=== PATIENT | male | born 1955 | race Caucasian/White ===

== ENCOUNTER → 2017-01-14 | Outpatient (CLI) | payer OTHER ==
[~2017-01-14] MED LIST: ACTIGALL300 MG PO; ANTIVIRAL MED; ASPIRIN EC81 M1 PO; ASPIRIN81 M1 PO; AUGMENTIN875 M1 DOB; AUGMENTIN875 M1 PO; BACTRIM DS TABL1 TA1 PO; CARDIZEM CD240 MG PO; CLEOCIN PO; CYCLOSPORINE100 M1 PO; DILTIAZEM 24HR180 M2; DILTIAZEM PO; FLEXERIL10 MG PO; FLONASE 0.05% N16 G1; FLUID PILL; GENGRAF25 MG PO; HYCODAN60 ML 5MG/ PO; HYDROCODON-ACE1 EAC7 PO; HYZAAR 100-25 T1 TA1 PO; ILOTYCIN1 G1 OP; KEFLEX500 MG PO; LABETALOL HCL200 MG PO; LIDOCARE1 EACH TOP; LIORESAL10 MG PO; MATZIM LA240 MG PO; METOPROLOL PO; MULTI-DAY1 TAB PO; MULTIVITAMIN1 UDCAP PO; MYFORTIC PO; MYFORTIC180 MG PO; OLYSIO PO; PERCOCET 5/321 UDTAB PO; PERCOCET7.5 PO; PREVACID PO; PREVACID15 M1; PRILOSEC20 MG PO; TOPROL XL50 MG PO; TORSEMIDE PO; TUSSIONEX PENN473 ML PO; ULORIC PO; ULORIC40 MG PO; URSODIOL PO; ZITHROMAX PO; ZYLOPRIM100 MG DOB; ZYLOPRIM100 MG PO; ZYRTEC10 M2 PO
[2017-01-14 09:14] LABS: ALBUMIN SERUM 4.1 g/dL (3.5-5.0); BASOPHIL# 0.1 X10e3 (0-0.3); BASOPHIL% 1.1 % (0-2.5); BILIRUBIN,TOTAL 0.8 mg/dL (0.2-2.0); BUN/CREATININE RATIO 15.83; CALCIUM SERUM 8.7 mg/dL (8.4-10.2); CREATININE SERUM 1.2 mg/dL (0.6-1.4); EOSINOPHIL# 0.1 X10e3 (0-0.7); EOSINOPHIL% 1.7 % (0.0-7.0); GLOM FILT RATE Estimated 64.4 mL/min (>60); HEMATOCRIT 45.3 % (38.0-50.0); HEMOGLOBIN 15.3 gm/dL (13.0-16.0); LYMPHOCYTE# 1.1 X10e3 (1.0-3.5); MEAN CELL VOLUME 92.1 FL (83-96); MEAN CORPUSCULAR HEMOGLOBIN 31.1 PG (28-34); MEAN CORPUSCULAR HGB CONC 33.8 g/dL (30-36); MEAN PLATELET VOLUME 7.8 FL (6.5-11.5); MONOCYTE# 0.4 X10e3 (0-1.0); MONOCYTE% 6.7 % (3.0-12.0); NEUTROPHIL# 4.4 X10e3 (1.5-7.1); NEUTROPHIL% 72.5 % (40-75); PLATELET COUNT 165 X10e3 (140-420); POTASSIUM 3.6 mmol/L (3.5-5.1); PROTEIN TOTAL SERUM 7.1 g/dL (6.0-8.3); RED BLOOD COUNT 4.92 X10e (3.90-5.60); RED CELL DISTRIBUTION WIDTH 14.3 % (11.0-15.5)
[2017-01-14 09:23] LABS: DIFF IND NO
== END | disposition home or self-care (01) ==
LOC: SLAB 08:29
PROVIDERS: Surgery
DX: Z48.23 Encounter for aftercare following liver transplant (principal); B18.2 Chronic viral hepatitis C; Z13.1 Encounter for screening for diabetes mellitus; Z94.4 Liver transplant status; Z79.899 Other long term (current) drug therapy
CPT/HCPCS: 36415; 80053; 85025

== ENCOUNTER 2017-02-13 09:24 | Emergency (ER) | payer OTHER ==
--- NOTE | ~2017-02-13 | CR63 ---
[facility] RADIOLOGY TEXT RESULTS PATIENT: CAMRYN CALZADA LOCATION: SED : 53 UNIT #: [id number] AGE: [address]: Elliott Carmona MD SEX: M ORDER DR: [id number] [place] [address] [id number] E MR#: [id number] Acc #: [id number] NAME: CAMRYN CALZADA : 1955 SEX: M STUDY DATE/TIME: 02/13/2017 10:30 UNIT: SED ROOM: STUDY DESCRIPTION: CR Chest 2 View Attending Physician: Elliott Carmona M.D. Ordering Physician: Elliott Carmona M.D. Primary Care Physician: Primary Care Physician No MEDICAL IMAGING REPORT This report is preliminary unless electronic signature is present. EXAM Chest 2 views 02/13/2017 1030 hours HISTORY 61-year-old with history of liver transplant, complaining of cough and congestion for 4 days. COMPARISON 07/15/2016 FINDINGS Upright PA and lateral views of the chest demonstrates slightly low lung volumes. Heart size is at the upper limits of normal. There is a stable mildly tortuous aorta. There is pulmonary venous distension with interstitial prominence right greater than left lung increased from 07/15/2016. This could represent chronic interstitial change or developing interstitial edema. No effusions are seen. IMPRESSION Stable mild prominence of the cardiac silhouette. There is pulmonary venous distension and right greater than left interstitial change in the lungs increased from 07/15/2016. An element of interstitial edema could be present. There are however no pleural effusions. No airspace consolidation. Dictated by... Kiki Walker M.D. THIS IS AN ELECTRONICALLY VERIFIED REPORT Kiki Walker M.D. at 02/14/2017 9:25 AM SMM/rnr [facility] RADIOLOGY TEXT RESULTS PATIENT: CAMRYN CALZADA LOCATION: SED : 54 UNIT #: [id number] AGE: [address]: Elliott Carmona MD SEX: M ORDER DR: TD: 02/13/2017 15:00 JOB #: [id number] MEDICAL IMAGING REPORT Page 1 of 1
[~2017-02-13 09:24] MED LIST changes: -DILTIAZEM 24HR180 M2
== END 2017-02-13 11:21 | disposition home or self-care (01) ==
LOC: SED 09:24
DX: J20.9 Acute bronchitis, unspecified (principal); G47.30 Sleep apnea, unspecified; K21.9 Gastro-esophageal reflux disease without esophagitis; I25.10 Atherosclerotic heart disease of native coronary artery without angina pectoris; Z94.4 Liver transplant status; Z88.8 Allergy status to other drugs, medicaments and biological substances; Z79.82 Long term (current) use of aspirin; Z79.899 Other long term (current) drug therapy
CPT/HCPCS: 71020; 94640; 99283

== ENCOUNTER → 2017-02-25 | Outpatient (CLI) | payer OTHER ==
[~2017-02-25] MED LIST changes: +DILTIAZEM 24HR180 M2
[2017-02-25 08:19] LABS: BASOPHIL% 0.7 % (0-2.5); EOSINOPHIL# 0.2 X10e3 (0-0.7); EOSINOPHIL% 2.8 % (0.0-7.0); HEMATOCRIT 45.4 % (38.0-50.0); HEMOGLOBIN 15.6 gm/dL (13.0-16.0); LYMPHOCYTE# 1.3 X10e3 (1.0-3.5); LYMPHOCYTE% 18.1 % (17.0-45.0); MEAN CELL VOLUME 91.2 FL (83-96); MEAN CORPUSCULAR HEMOGLOBIN 31.3 PG (28-34); MEAN CORPUSCULAR HGB CONC 34.4 g/dL (30-36); MEAN PLATELET VOLUME 7.8 FL (6.5-11.5); MONOCYTE# 0.6 X10e3 (0-1.0); MONOCYTE% 7.8 % (3.0-12.0); NEUTROPHIL% 70.6 % (40-75); PLATELET COUNT 155 X10e3 (140-420); RED BLOOD COUNT 4.98 X10e (3.90-5.60); RED CELL DISTRIBUTION WIDTH 13.8 % (11.0-15.5)
[2017-02-25 08:36] LABS: DIFF IND NO
[2017-02-25 08:37] LABS: ALBUMIN SERUM 4.3 g/dL (3.5-5.0); BILIRUBIN,TOTAL 0.6 mg/dL (0.2-2.0); BUN/CREATININE RATIO 13.07; CALCIUM SERUM 8.5 mg/dL (8.4-10.2); CREATININE SERUM 1.3 mg/dL (0.6-1.4); GLOM FILT RATE Estimated 58.5 mL/min (>60); POTASSIUM 3.4 mmol/L (3.5-5.1); PROTEIN TOTAL SERUM 7.3 g/dL (6.0-8.3)
== END | disposition home or self-care (01) ==
LOC: STPL 07:59
PROVIDERS: Surgery
DX: Z48.23 Encounter for aftercare following liver transplant (principal); B18.2 Chronic viral hepatitis C; Z13.1 Encounter for screening for diabetes mellitus; Z94.4 Liver transplant status; Z79.891 Long term (current) use of opiate analgesic
CPT/HCPCS: 36415; 80053; 83036; 85025

== ENCOUNTER → 2017-04-15 | Outpatient (CLI) | payer OTHER ==
[2017-04-15 09:02] LABS: BASOPHIL% 0.9 % (0-2.5); EOSINOPHIL# 0.2 X10e3 (0-0.7); HEMATOCRIT 44.2 % (38.0-50.0); HEMOGLOBIN 15.3 gm/dL (13.0-16.0); LYMPHOCYTE# 1.1 X10e3 (1.0-3.5); LYMPHOCYTE% 20.1 % (17.0-45.0); MEAN CELL VOLUME 91.3 FL (83-96); MEAN CORPUSCULAR HEMOGLOBIN 31.6 PG (28-34); MEAN CORPUSCULAR HGB CONC 34.6 g/dL (30-36); MEAN PLATELET VOLUME 7.9 FL (6.5-11.5); MONOCYTE# 0.3 X10e3 (0-1.0); MONOCYTE% 5.9 % (3.0-12.0); NEUTROPHIL# 3.9 X10e3 (1.5-7.1); NEUTROPHIL% 70.1 % (40-75); PLATELET COUNT 149 X10e3 (140-420); RED BLOOD COUNT 4.84 X10e (3.90-5.60); WHITE BLOOD COUNT 5.6 X10e3 (4.0-10.5)
[2017-04-15 09:15] LABS: DIFF IND NO
[2017-04-15 09:22] LABS: BILIRUBIN,TOTAL 0.4 mg/dL (0.2-2.0); BUN/CREATININE RATIO 14.16; CALCIUM SERUM 8.7 mg/dL (8.4-10.2); CREATININE SERUM 1.2 mg/dL (0.6-1.4); GLOM FILT RATE Estimated 64.4 mL/min (>60); POTASSIUM 3.6 mmol/L (3.5-5.1); PROTEIN TOTAL SERUM 7.2 g/dL (6.0-8.3)
== END | disposition home or self-care (01) ==
LOC: STPL 08:33
PROVIDERS: Surgery
DX: Z48.23 Encounter for aftercare following liver transplant (principal); B18.2 Chronic viral hepatitis C; Z79.891 Long term (current) use of opiate analgesic
CPT/HCPCS: 36415; 80053; 85025

== ENCOUNTER 2017-04-21 18:52 | Emergency (ER) | payer OTHER ==
[~2017-04-21] VITALS: Ht 180.3 cm; Wt 115.7 kg
[~2017-04-21 18:52] MED LIST changes: -DILTIAZEM 24HR180 M2
[2017-04-21] MEDS ORDERED: DILTIAZEM 24HR180 M2 (18:59)
== END 2017-04-21 20:20 | disposition home or self-care (01) ==
LOC: SED 18:52
DX: J02.9 Acute pharyngitis, unspecified (principal); I13.0 Hypertensive heart and chronic kidney disease with heart failure and stage 1 through stage 4 chronic kidney disease, or unspecified chronic kidney disease; N18.9 Chronic kidney disease, unspecified; I50.9 Heart failure, unspecified; B19.20 Unspecified viral hepatitis C without hepatic coma; Z94.4 Liver transplant status
CPT/HCPCS: 87651; 99283